=== PATIENT | female | born 1990 | race Caucasian/White ===

== ENCOUNTER 2018-03-15 09:03 | Emergency (ER) | payer OTHER ==
[~2018-03-15] VITALS: Ht 157.5 cm; Wt 87.1 kg
== END 2018-03-15 19:20 | disposition home or self-care (01) ==
LOC: ER 09:03
DX: B34.9 Viral infection, unspecified (principal)

== ENCOUNTER 2018-05-20 20:09 | Inpatient (IN) | payer OTHER ==
[~2018-05-20] VITALS: Ht 157.5 cm; Wt 89.4 kg
[2018-05-25] MEDS ORDERED: PRENATAL 19 TA1 EAC1 PO (22:31)
== END 2018-05-24 12:53 | disposition home or self-care (01) | DRG 832 ==
LOC: OBS/DEL 20:09 → LDR 05-21 21:11
PROVIDERS: ADMIT Obstetrics & Gynecology
PROC: 4A1HXCZ Monitoring of Products of Conception, Cardiac Rate, External Approach (ICD-10-PCS; principal; 2018-05-22)
DX: O36.8130 Decreased fetal movements, third trimester, not applicable or unspecified (principal); O47.1 False labor at or after 37 completed weeks of gestation; Z34.83 Encounter for supervision of other normal pregnancy, third trimester

== ENCOUNTER 2018-05-25 21:55 | Inpatient (IN) | payer OTHER ==
[~2018-05-25] VITALS: Ht 157.5 cm; Wt 84.8 kg
[2018-05-25] MEDS ORDERED: PRENATAL 19 TA1 EAC1 PO (22:31)
== END 2018-05-28 13:25 | DRG 807 ==
LOC: LDR 21:55 → OB/GYN 05-26 21:32
PROC: 10E0XZZ Delivery of Products of Conception, External Approach (ICD-10-PCS; principal; 2018-05-25)
PROC: 4A1HXCZ Monitoring of Products of Conception, Cardiac Rate, External Approach (ICD-10-PCS; 2018-05-25)
DX: O80 Encounter for full-term uncomplicated delivery (principal); Z37.0 Single live birth; Z3A.38 38 weeks gestation of pregnancy

== ENCOUNTER 2024-03-02 10:43 | Day surgery (SDC) | payer OTHER ==
[~2024-03-02 10:43] MED LIST: ADULT ASPIRIN81 MG; PRENATAL 19 TA1 EAC1 PO; SIMVASTATIN5 MG
[2024-03-02] MEDS ORDERED: POVIDONE-IODINE 118 ML BOTT TOP ONE (13:38)
[2024-03-02] MEDS ORDERED: RINGERS SOLUTION,LACTATED 1,000 ML IV SCH (17:00)
== END 2024-03-02 19:10 | disposition home or self-care (01) ==
LOC: CIR.AMB 10:43
PROVIDERS: ATTEND Obstetrics & Gynecology
DX: N84.0 Polyp of corpus uteri (principal); F41.9 Anxiety disorder, unspecified; G43.909 Migraine, unspecified, not intractable, without status migrainosus